=== PATIENT | male | born 1950 | race Caucasian/White ===

== ENCOUNTER 2023-05-27 14:23 | Inpatient (IN) | payer BC ==
[2023-05-27 17:40] LABS: BASO % 1.2 % (0-2.0); EOS % 0.7 % (0-4.5); HEMATOCRIT 18.2 % (35.4-49); LYMPH % 2.5 % (8-40); MCH 28.9 pg (25.7-33.7); MCHC 33.8 g/dl (32.0-35.9); MEAN CELL VOLUME 85.7 fl (80-96); MONO % 2.3 % (3.8-10.2); NEUT % 93.3 % (42.8-82.8); RBC 2.13 M/mm3 (4.00-5.60); RDW 19.9 % (11.9-15.9)
[2023-05-27 17:44] LABS: INR 1.08 (0.83-1.09); PROTHROMBIN TIME (PATIENT) 12.5 SEC (9.7-13.0)
[2023-05-27 17:47] LABS: ACTIVATED PTT 35.9 SECONDS (25.2-36.5)
[2023-05-27 17:48] LABS: HEMOGLOBIN 6.2 GM/dL (11.7-16.9); WHITE BLOOD COUNT 1.1 K/mm3 (4.0-10.0)
[2023-05-27 18:01] LABS: POTASSIUM 3.8 mmol/L (3.5-5.1)
[2023-05-27 18:03] LABS: CALCIUM 7.6 mg/dL (8.5-10.1)
[2023-05-27 18:04] LABS: ALBUMIN 2.4 g/dl (3.4-5.0); BLOOD UREA NITROGEN 11.9 mg/dL (7-18)
[2023-05-27 18:07] LABS: CREATININE 0.5 mg/dL (0.55-1.3)
[2023-05-27 18:08] LABS: BILIRUBIN,TOTAL 0.2 mg/dL (0.2-1); TOT PROT 4.6 g/dl (6.4-8.2)
[2023-05-27 19:48] LABS: MEAN PLT VOLUME 8.3 fl (7.5-11.1); PLATELET COUNT 87 10^3/uL (134-434)
[2023-05-27] MEDS ORDERED: ONDANSETRON 4 MG TABLET PO PRN (23:40)
[2023-05-27] MEDS ORDERED: ARTIFICIAL TEARS (POLYVINYL ALCOHOL) OPTH DROPS OU PRN (23:40)
[2023-05-28 00:55] LABS: URINE APPEARANCE CLEAR; URINE BILIRUBIN NEGATIVE (NEGATIVE); URINE COLOR YELLOW; URINE GLUCOSE (UA) NEGATIVE (NEGATIVE); URINE KETONE NEGATIVE (NEGATIVE); URINE LEUK ESTERASE NEGATIVE (NEGATIVE); URINE NITRITE NEGATIVE (NEGATIVE); URINE PROTEIN NEGATIVE (NEGATIVE)
[2023-05-28] MEDS: BUDESONIDE/FORMETEROL FUMARATE 80/4.5 mcg INHALER IH SCH ×3 (02:00→23:10)
[2023-05-28] MEDS ORDERED: PIPERACILLIN/TAZOB 4.5 GM 4.5 GM/100 ML BAG IVPB ONE ×2 (03:15→08:34)
[2023-05-28] MEDS: PIPERACILLIN/TAZOB 4.5 GM 4.5 GM in DEXTROSE 5%-WATER 100 ML IVPB SCH ×2 (04:10→08:39)
[2023-05-28 07:43] LABS: HEMATOCRIT 22.5 % (35.4-49); HEMOGLOBIN 7.8 GM/dL (11.7-16.9); MCH 29.7 pg (25.7-33.7); MCHC 34.6 g/dl (32.0-35.9); MEAN CELL VOLUME 85.7 fl (80-96); MEAN PLT VOLUME 8.3 fl (7.5-11.1); PLATELET COUNT 99 10^3/uL (134-434); RBC 2.62 M/mm3 (4.00-5.60); RDW 17.5 % (11.9-15.9)
[2023-05-28 07:50] LABS: WHITE BLOOD COUNT 0.9 K/mm3 (4.0-10.0)
[2023-05-28 07:54] LABS: POTASSIUM 3.9 mmol/L (3.5-5.1)
[2023-05-28 08:02] LABS: CALCIUM 7.6 mg/dL (8.5-10.1)
[2023-05-28 08:03] LABS: ALBUMIN 2.4 g/dl (3.4-5.0); BLOOD UREA NITROGEN 9.9 mg/dL (7-18); MAGNESIUM 1.1 mg/dL (1.8-2.4)
[2023-05-28 08:06] LABS: CREATININE 0.3 mg/dL (0.55-1.3); PHOSPHOROUS 3.7 mg/dL (2.5-4.9)
[2023-05-28 08:07] LABS: BILIRUBIN,TOTAL 0.4 mg/dL (0.2-1); TOT PROT 4.4 g/dl (6.4-8.2)
[2023-05-28 09:43] LABS: ANISOCYTOSIS 1+; MACROCYTOSIS 0
[2023-05-28] MEDS ORDERED: SODIUM BICARBONATE 650 MG TABLET PO SCH (10:00)
[2023-05-28] MEDS ORDERED: MAG HYDROX/AL HYDROX/SIMETH 30 ML UNIT-DOSE CUP ONE (10:18)
[2023-05-28] MEDS: MAGNESIUM HYDROX 2400MG/30ML ORAL SUSPENSION 30 ML CUP PO SCH (10:31)
[2023-05-28] MEDS ORDERED: FOLIC ACID 1 MG TABLET (FP) ONE (11:14)
[2023-05-28] MEDS: FOLIC ACID 1 MG TABLET (FP) PO SCH (11:17)
[2023-05-28] MEDS ORDERED: ALBUTEROL SO4 2.5/IPRATROPIUM 0.5 INH SOL 3 ML VIAL.NEB. NEB ONE ×3 (11:51→19:59)
[2023-05-28] MEDS: TIMOLOL 0.5% OPHTHALMIC SOL 5 ML BOTTLE OD SCH (11:55)
[2023-05-28] MEDS: ALBUTEROL SO4 2.5/IPRATROPIUM 0.5 INH SOL 3 ML VIAL.NEB. NEB SCH ×3 (11:56→20:08)
[2023-05-28 23:05] VITALS: BMI 16.3
[2023-05-28] MEDS: MIRTAZAPINE 15 MG TABLET (FP) PO SCH (23:09)
[2023-05-29] MEDS ORDERED: PIPERACILLIN/TAZOB 4.5 GM 4.5 GM in DEXTROSE 5%-WATER 100 ML IVPB SCH (03:00)
[2023-05-29] MEDS: ALBUTEROL SO4 2.5/IPRATROPIUM 0.5 INH SOL 3 ML VIAL.NEB. NEB SCH ×4 (07:51→20:05)
[2023-05-29 09:09] LABS: BASO % 5.1 % (0-2.0); EOS % 0.9 % (0-4.5); HEMATOCRIT 22.1 % (35.4-49); HEMOGLOBIN 7.7 GM/dL (11.7-16.9); LYMPH % 5.1 % (8-40); MCH 29.5 pg (25.7-33.7); MCHC 34.9 g/dl (32.0-35.9); MEAN CELL VOLUME 84.7 fl (80-96); MEAN PLT VOLUME 7.9 fl (7.5-11.1); MONO % 12.7 % (3.8-10.2); NEUT % 76.2 % (42.8-82.8); PLATELET COUNT 105 10^3/uL (134-434); RDW 17.7 % (11.9-15.9)
[2023-05-29] MEDS: BUDESONIDE/FORMETEROL FUMARATE 80/4.5 mcg INHALER IH SCH ×2 (09:14→22:09)
[2023-05-29] MEDS: MAGNESIUM HYDROX 2400MG/30ML ORAL SUSPENSION 30 ML CUP PO SCH ×3 (09:14→14:08)
[2023-05-29] MEDS: FOLIC ACID 1 MG TABLET (FP) PO SCH (09:14)
[2023-05-29 09:23] LABS: POTASSIUM 3.3 mmol/L (3.5-5.1)
[2023-05-29 09:27] LABS: WHITE BLOOD COUNT 0.4 K/mm3 (4.0-10.0)
[2023-05-29 09:42] LABS: BLOOD UREA NITROGEN 5.6 mg/dL (7-18)
[2023-05-29 09:43] LABS: ALBUMIN 2.3 g/dl (3.4-5.0)
[2023-05-29 09:44] LABS: BILIRUBIN,TOTAL 0.3 mg/dL (0.2-1); CALCIUM 7.9 mg/dL (8.5-10.1); TOT PROT 4.4 g/dl (6.4-8.2)
[2023-05-29 09:45] LABS: CREATININE 0.4 mg/dL (0.55-1.3)
[2023-05-29 10:22] LABS: ANISOCYTOSIS 0; HELMET CELLS 0; HOWELL-JOLLY BODIES 0; MACROCYTOSIS 0; OVALOCYTE 0; ROULEAU 0; SICKELED CELLS 0; TARGET CELLS 0; TEAR DROP CELLS 0; TOXIC GRANULATION 0
[2023-05-29] MEDS: guaiFENesin 200 MG/10 ML 10 ML UNIT-DOSE CUPS PO PRN (12:09)
[2023-05-29] MEDS: TIMOLOL 0.5% OPHTHALMIC SOL 5 ML BOTTLE OD SCH (12:39)
[2023-05-29] MEDS: DOXYCYCLINE HYCLATE 100 MG CAPSULE PO SCH ×2 (14:02→18:14)
[2023-05-29 16:08] LABS: PARV B19 IGG 3.4 index (0.0-0.8); PARV B19 IGM 0.2 index (0.0-0.8)
[2023-05-29] MEDS: MIRTAZAPINE 15 MG TABLET (FP) PO SCH (22:08)
[2023-05-30] MEDS: ALBUTEROL SO4 2.5/IPRATROPIUM 0.5 INH SOL 3 ML VIAL.NEB. NEB SCH ×4 (07:30→20:50)
[2023-05-30] MEDS: MAGNESIUM HYDROX 2400MG/30ML ORAL SUSPENSION 30 ML CUP PO SCH (09:32)
[2023-05-30] MEDS: FOLIC ACID 1 MG TABLET (FP) PO SCH (09:33)
[2023-05-30] MEDS: guaiFENesin 200 MG/10 ML 10 ML UNIT-DOSE CUPS PO PRN (09:33)
[2023-05-30] MEDS: MULTIVITAMINS THER W-MINERALS COMBO TABLET (FP) PO SCH (09:33)
[2023-05-30] MEDS: DOXYCYCLINE HYCLATE 100 MG CAPSULE PO SCH ×2 (09:33→17:37)
[2023-05-30] MEDS: BUDESONIDE/FORMETEROL FUMARATE 80/4.5 mcg INHALER IH SCH ×2 (09:33→21:33)
[2023-05-30] MEDS: TIMOLOL 0.5% OPHTHALMIC SOL 5 ML BOTTLE OD SCH (09:34)
[2023-05-30 10:51] LABS: HEMATOCRIT 24.4 % (35.4-49); HEMOGLOBIN 8.4 GM/dL (11.7-16.9); MCH 29.6 pg (25.7-33.7); MCHC 34.4 g/dl (32.0-35.9); MEAN CELL VOLUME 86.1 fl (80-96); MEAN PLT VOLUME 8.8 fl (7.5-11.1); PLATELET COUNT 121 10^3/uL (134-434); RBC 2.84 M/mm3 (4.00-5.60)
[2023-05-30 11:04] LABS: WHITE BLOOD COUNT 0.5 K/mm3 (4.0-10.0)
[2023-05-30 11:10] LABS: POTASSIUM 3.2 mmol/L (3.5-5.1)
[2023-05-30 11:12] LABS: ALBUMIN 2.4 g/dl (3.4-5.0); BLOOD UREA NITROGEN 4.5 mg/dL (7-18); CALCIUM 7.9 mg/dL (8.5-10.1)
[2023-05-30 11:15] LABS: CREATININE 0.4 mg/dL (0.55-1.3)
[2023-05-30 11:17] LABS: BILIRUBIN,TOTAL 0.2 mg/dL (0.2-1); TOT PROT 4.6 g/dl (6.4-8.2)
[2023-05-30] MEDS ORDERED: POTASSIUM CHLORIDE TABS 20 MEQ TABLET.ER (FP) PO ONE (11:23)
[2023-05-30 11:37] LABS: ANISOCYTOSIS 2+; MACROCYTOSIS 0
[2023-05-30] MEDS ORDERED: FLUCONAZOLE 100 MG TABLET (UD) PO ONE (19:18)
[2023-05-30] MEDS ORDERED: ACYCLOVIR 400 MG TABLET PO SCH (19:26)
[2023-05-30] MEDS: MIRTAZAPINE 15 MG TABLET (FP) PO SCH (21:32)
[2023-05-30] MEDS: ACYCLOVIR 400 MG TABLET PO SCH (21:32)
[2023-05-30] MEDS: FLUCONAZOLE 100 MG TABLET (UD) PO SCH (21:32)
[2023-05-31] MEDS: ALBUTEROL SO4 2.5/IPRATROPIUM 0.5 INH SOL 3 ML VIAL.NEB. NEB SCH ×4 (07:25→21:33)
[2023-05-31] MEDS: ACYCLOVIR 400 MG TABLET PO SCH ×2 (11:26→21:40)
[2023-05-31] MEDS: MULTIVITAMINS THER W-MINERALS COMBO TABLET (FP) PO SCH (11:26)
[2023-05-31] MEDS: MAGNESIUM HYDROX 2400MG/30ML ORAL SUSPENSION 30 ML CUP PO SCH (11:26)
[2023-05-31] MEDS: DOXYCYCLINE HYCLATE 100 MG CAPSULE PO SCH ×2 (11:26→18:30)
[2023-05-31] MEDS: FLUCONAZOLE 100 MG TABLET (UD) PO SCH (11:26)
[2023-05-31] MEDS: FOLIC ACID 1 MG TABLET (FP) PO SCH (11:27)
[2023-05-31] MEDS: TIMOLOL 0.5% OPHTHALMIC SOL 5 ML BOTTLE OD SCH (11:27)
[2023-05-31] MEDS: BUDESONIDE/FORMETEROL FUMARATE 80/4.5 mcg INHALER IH SCH ×2 (11:28→21:41)
[2023-05-31] MEDS: MIRTAZAPINE 15 MG TABLET (FP) PO SCH (21:40)
[2023-06-01] MEDS: ALBUTEROL SO4 2.5/IPRATROPIUM 0.5 INH SOL 3 ML VIAL.NEB. NEB SCH ×4 (07:38→20:50)
[2023-06-01 08:55] LABS: HEMOGLOBIN 9.2 GM/dL (11.7-16.9); MCHC 35.3 g/dl (32.0-35.9); MEAN PLT VOLUME 8.1 fl (7.5-11.1); PLATELET COUNT 174 10^3/uL (134-434); RBC 3.06 M/mm3 (4.00-5.60); RDW 18.3 % (11.9-15.9); WHITE BLOOD COUNT 2.5 K/mm3 (4.0-10.0)
[2023-06-01 09:03] LABS: POTASSIUM 3.7 mmol/L (3.5-5.1)
[2023-06-01 09:09] LABS: CALCIUM 8.4 mg/dL (8.5-10.1)
[2023-06-01 09:10] LABS: BLOOD UREA NITROGEN 6.3 mg/dL (7-18)
[2023-06-01 09:13] LABS: CREATININE 0.5 mg/dL (0.55-1.3)
[2023-06-01] MEDS: FOLIC ACID 1 MG TABLET (FP) PO SCH (09:41)
[2023-06-01] MEDS: FLUCONAZOLE 100 MG TABLET (UD) PO SCH (09:41)
[2023-06-01] MEDS: DOXYCYCLINE HYCLATE 100 MG CAPSULE PO SCH ×2 (09:41→17:49)
[2023-06-01] MEDS: MAGNESIUM HYDROX 2400MG/30ML ORAL SUSPENSION 30 ML CUP PO SCH (09:41)
[2023-06-01] MEDS: MULTIVITAMINS THER W-MINERALS COMBO TABLET (FP) PO SCH (09:41)
[2023-06-01] MEDS: ACYCLOVIR 400 MG TABLET PO SCH ×2 (09:42→22:23)
[2023-06-01] MEDS: BUDESONIDE/FORMETEROL FUMARATE 80/4.5 mcg INHALER IH SCH ×2 (09:45→22:10)
[2023-06-01] MEDS: TIMOLOL 0.5% OPHTHALMIC SOL 5 ML BOTTLE OD SCH (09:46)
[2023-06-01 11:57] LABS: ANISOCYTOSIS 2+; MACROCYTOSIS 0; OVALOCYTE 2+
[2023-06-01] MEDS: MIRTAZAPINE 15 MG TABLET (FP) PO SCH (22:05)
[2023-06-01] MEDS: guaiFENesin 200 MG/10 ML 10 ML UNIT-DOSE CUPS PO PRN (22:06)
[2023-06-02] MEDS: ALBUTEROL SO4 2.5/IPRATROPIUM 0.5 INH SOL 3 ML VIAL.NEB. NEB SCH (08:06)
[2023-06-02 09:49] LABS: HEMATOCRIT 28.4 % (35.4-49); HEMOGLOBIN 9.8 GM/dL (11.7-16.9); MCH 30.2 pg (25.7-33.7); MCHC 34.6 g/dl (32.0-35.9); MEAN CELL VOLUME 87.3 fl (80-96); MEAN PLT VOLUME 8.1 fl (7.5-11.1); PLATELET COUNT 194 10^3/uL (134-434); RBC 3.26 M/mm3 (4.00-5.60); RDW 19.2 % (11.9-15.9); WHITE BLOOD COUNT 4.8 K/mm3 (4.0-10.0)
[2023-06-02] MEDS: MULTIVITAMINS THER W-MINERALS COMBO TABLET (FP) PO SCH (10:05)
[2023-06-02] MEDS: ACYCLOVIR 400 MG TABLET PO SCH (10:05)
[2023-06-02] MEDS: FOLIC ACID 1 MG TABLET (FP) PO SCH (10:07)
[2023-06-02] MEDS: MAGNESIUM HYDROX 2400MG/30ML ORAL SUSPENSION 30 ML CUP PO SCH (10:07)
[2023-06-02] MEDS: FLUCONAZOLE 100 MG TABLET (UD) PO SCH (10:07)
[2023-06-02] MEDS: DOXYCYCLINE HYCLATE 100 MG CAPSULE PO SCH ×2 (10:08→18:04)
[2023-06-02] MEDS: TIMOLOL 0.5% OPHTHALMIC SOL 5 ML BOTTLE OD SCH (10:09)
[2023-06-02] MEDS: BUDESONIDE/FORMETEROL FUMARATE 80/4.5 mcg INHALER IH SCH (10:10)
[2023-06-02 10:11] LABS: POTASSIUM 3.9 mmol/L (3.5-5.1)
[2023-06-02 10:14] LABS: ALBUMIN 2.6 g/dl (3.4-5.0); CALCIUM 8.1 mg/dL (8.5-10.1)
[2023-06-02 10:15] LABS: BLOOD UREA NITROGEN 8.9 mg/dL (7-18); MAGNESIUM 1.1 mg/dL (1.8-2.4)
[2023-06-02 10:17] LABS: CREATININE 0.5 mg/dL (0.55-1.3)
[2023-06-02 10:19] LABS: BILIRUBIN,TOTAL 0.4 mg/dL (0.2-1); TOT PROT 4.8 g/dl (6.4-8.2)
[2023-06-02 10:37] LABS: ANISOCYTOSIS 1+; MACROCYTOSIS 0; TEAR DROP CELLS 1+
[2023-06-02 12:20] VITALS: TEMP 98.1
[2023-06-02 14:46] VITALS: BP 115/78; PULSE 79; RESP 19
[2023-06-02] MEDS: guaiFENesin 200 MG/10 ML 10 ML UNIT-DOSE CUPS PO PRN (16:51)
[2023-06-02] MEDS ORDERED: guaiFENesin/CODEINE 10 ML UNIT-DOSE CUPS PO SCH (22:00)
== END 2023-06-02 19:15 | DRG 840 ==
LOC: JER 14:23 → JERBED 18:20 → J8W 05-28 22:10 → OBSVTOIN 05-29 10:26
PROVIDERS: ADMIT Internal Medicine; ATTEND Nurse Practitioner Acute Care
PROC: 30233N1 Transfusion of Nonautologous Red Blood Cells into Peripheral Vein, Percutaneous Approach (ICD-10-PCS; principal; 2023-05-27)
DX: C81.90 Hodgkin lymphoma, unspecified, unspecified site (principal); D61.810 Antineoplastic chemotherapy induced pancytopenia; E43 Unspecified severe protein-calorie malnutrition; J21.0 Acute bronchiolitis due to respiratory syncytial virus; Z68.1 Body mass index [BMI] 19.9 or less, adult; D64.9 Anemia, unspecified; E78.5 Hyperlipidemia, unspecified; F32.A Depression, unspecified; D69.6 Thrombocytopenia, unspecified; Z86.16 Personal history of COVID-19; E83.51 Hypocalcemia; T45.1X5A Adverse effect of antineoplastic and immunosuppressive drugs, initial encounter; E87.6 Hypokalemia; J44.9 Chronic obstructive pulmonary disease, unspecified; K21.9 Gastro-esophageal reflux disease without esophagitis; F41.9 Anxiety disorder, unspecified; H40.9 Unspecified glaucoma
CPT/HCPCS: 0241U-QW; 36415; 36430; 71045-TC-FY; 71250-TC; 80048; 80053; 81003; 82728; 83540; 83550; 83735; 84100; 85025; 85045; 85610; 85730; 86618; 86747; 86850; 86900; 86901; 86922; 87040; 87086; 87635; 87799; 93005; 93010; 94640; 97116-GP; 97161-GP; 99285-25; G0378; P9058